=== PATIENT | female | born 1955 | race Caucasian/White ===

== ENCOUNTER → 2017-07-23 | Outpatient (CLI) | payer OTHER ==
--- NOTE | 2017-07-23 22:39 | MRI ---
EXAM DESCRIPTION: Brain w/oContrast CLINICAL HISTORY: SYNCOPE COMPARISON: None TECHNIQUE: Multiplanar images of the brain were obtained without the administration of intravenous contrast FINDINGS: There is no evidence of acute mass, mass effect, midline shift or hemorrhage. No focal abnormal extra-axial fluid collection is seen. The ventricles, basal cisterns and extra-axial fluid spaces are normal in size and configuration. Brain parenchymal signal is normal. IMPRESSION: No acute abnormalities. Electronically signed by: Daniel Verdugo 07/23/2017 10:38 PM [facility]
== END | disposition home or self-care (01) ==
LOC: MRI 14:07
PROVIDERS: ATTEND Emergency Medicine
DX: R55 Syncope and collapse (principal)

== ENCOUNTER 2018-05-19 15:14 | Emergency (ER) | payer OTHER ==
[2018-05-19] MEDS ORDERED: MORPHINE SULFATE INJ 10 MG/ML VIAL IV ONE (15:36)
[2018-05-19] MEDS ORDERED: ONDANSETRON INJ 4 MG/2 ML VIAL IV ONE (15:37)
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
[2018-05-19 16:42] VITALS: O2SAT 97
--- NOTE | 2018-05-19 16:57 | CT ---
EXAM DESCRIPTION: Head CLINICAL HISTORY: HEADACHE/INJURY COMPARISON: None Available TECHNIQUE: Contiguous axial CT images of the head were obtained. Coronal and sagittal reconstructions were created from the axial data. This exam was performed according to our departmental dose-optimization program, which includes automated exposure control, adjustment of the mA and/or kV according to patient size and/or use of iterative reconstruction technique. FINDINGS: There is no evidence of acute mass, mass effect, midline shift or hemorrhage. The ventricles and extra-axial CSF spaces are unremarkable. The brain parenchyma appears normal for the patient's age. No acute abnormalities of the bones is seen. IMPRESSION: No acute intracranial abnormality. Electronically signed by: Daniel Verdugo 05/19/2018 4:55 PM CDT
--- NOTE | 2018-05-19 16:59 | CT ---
EXAM DESCRIPTION: CT CERVICAL SPINE CLINICAL HISTORY: HEADACHE/INJURY COMPARISON: None Available. TECHNIQUE: Contiguous axial images of the cervical spine were obtained followed by reconstruction images.This exam was performed according to our departmental dose-optimization program, which includes automated exposure control, adjustment of the mA and/or kV according to patient size and/or use of iterative reconstruction technique. FINDINGS: There are degenerative changes of the bones. Soft tissue attenuation small focus in the trachea is most likely secretions. There is no acute fracture or subluxation. The prevertebral soft tissues are within normal limits. IMPRESSION: No acute fracture or subluxation. Electronically signed by: Daniel Verdugo 05/19/2018 4:58 PM CDT
--- NOTE | 2018-05-19 17:06 | CT ---
EXAM DESCRIPTION: Chest w/Contrast CT abdomen and pelvis with contrast CLINICAL HISTORY: HEADACHE/INJURY COMPARISON: None Available. TECHNIQUE: Contiguous axial images of the chest, abdomen and pelvis were obtained from the thoracic inlet up to the upper abdomen followed by reconstruction images. IV contrast was administered. This exam was performed according to our departmental dose-optimization program, which includes automated exposure control, adjustment of the mA and/or kV according to patient size and/or use of iterative reconstruction technique. FINDINGS: There are postsurgical changes in the upper abdomen. No significant free fluid. No clear evidence of bowel contusion. Small hiatal hernia is present. Gallbladder is surgically absent. No definite acute aortic abnormality. No pneumothorax. Atelectasis involves the left lung base. A stone measuring approximately 10 mm x 6 mm is in the right renal pelvis. No definite fracture. Metallic density in the left glenoid may be postsurgical and correlation with history will be helpful. The aorta is of normal contour and tapering. There is no pericardial or pleural fluid collection. There is no parenchymal consolidation or pneumothorax. IMPRESSION: No acute traumatic abnormality of the chest abdomen or pelvis. Electronically signed by: Daniel Verdugo 05/19/2018 5:05 PM CDT
--- NOTE | 2018-05-19 17:06 | RAD ---
EXAM DESCRIPTION: Chest,1 View CLINICAL HISTORY: CP COMPARISON: None. FINDINGS: Cardiac silhouette is within normal limits. There is no focal parenchymal or pleural disease. Visualized osseous structures are within normal limits. IMPRESSION: No evidence of acute cardiopulmonary disease. Electronically signed by: Daniel Verdugo 05/19/2018 5:05 PM CDT
--- NOTE | 2018-05-19 17:07 | RAD ---
EXAM DESCRIPTION: Knee,Left 2 or More Views CLINICAL HISTORY: KNEE PAIN COMPARISON: None FINDINGS: 2 view(s) submitted. No fracture or dislocation is identified. Bone marrow attenuation is unremarkable. No radiopaque foreign body is identified. IMPRESSION: No acute fracture or dislocation. Electronically signed by: Daniel Verdugo 05/19/2018 5:05 PM CDT
--- NOTE | 2018-05-19 17:07 | RAD ---
EXAM DESCRIPTION: Pelvis CLINICAL HISTORY: CP COMPARISON: None FINDINGS: One view(s) submitted. No fracture or dislocation is identified. Bone marrow attenuation is unremarkable. No radiopaque foreign body is identified. IMPRESSION: No acute fracture or dislocation. Electronically signed by: Daniel Verdugo 05/19/2018 5:06 PM CDT
[2018-05-19 19:05] VITALS: BP 136/83; TEMP 97.2
== END 2018-05-19 19:05 | disposition home or self-care (01) ==
LOC: ER 15:14
DX: S09.90XA Unspecified injury of head, initial encounter (principal); S39.81XA Other specified injuries of abdomen, initial encounter; S80.02XA Contusion of left knee, initial encounter; M54.2 Cervicalgia; R07.9 Chest pain, unspecified; M79.7 Fibromyalgia; F32.9 Major depressive disorder, single episode, unspecified; K21.9 Gastro-esophageal reflux disease without esophagitis; I10 Essential (primary) hypertension; J44.9 Chronic obstructive pulmonary disease, unspecified; Z86.73 Personal history of transient ischemic attack (TIA), and cerebral infarction without residual deficits; Z79.899 Other long term (current) drug therapy; Z88.0 Allergy status to penicillin; V49.59XA Passenger injured in collision with other motor vehicles in traffic accident, initial encounter; Y92.410 Unspecified street and highway as the place of occurrence of the external cause
CPT/HCPCS: 36415; 70450; 71045; 71260; 72125; 72170; 73560; 74177; 80053; 81001; 83690; 85025; J2060; J2270; J2405

== ENCOUNTER → 2019-07-14 | Outpatient (CLI) | payer OTHER ==
--- NOTE | 2019-07-14 11:18 | RAD ---
EXAM DESCRIPTION: Shoulder,Right 2 or More Views CLINICAL HISTORY: PAIN IN RIGHT SHOULDER COMPARISON: None. IMPRESSION: 4 views of the right shoulder show no acute fracture, focal bone destruction, or joint dislocation. 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 Right acromioclavicular joint shows mild joint space narrowing and bony hypertrophy superiorly and inferiorly mainly involving the acromion consistent with osteoarthritic changes. Electronically signed by: Harvey Burgos MD 07/14/2019 11:16 AM [facility]
== END ==
LOC: RAD 09:33
PROVIDERS: ATTEND Orthopaedic Surgery
DX: M19.011 Primary osteoarthritis, right shoulder (principal); M25.711 Osteophyte, right shoulder

== ENCOUNTER 2019-10-23 15:26 | Observation (INO) | payer OTHER ==
[2019-10-23] MEDS ORDERED: IPRATROPIUM/ALBUTEROL 3 ML VIAL NEB ONE ×2 (15:33→15:40)
[2019-10-23] MEDS ORDERED: ASPIRIN TABLET 325 MG TAB PO ONE (15:38)
[2019-10-23] MEDS ORDERED: SODIUM CHLORIDE 0.9% (FLUSH) 10 ML SYG IV PRN ×2 (15:38→22:22)
[2019-10-23] MEDS ORDERED: ONDANSETRON INJ 4 MG/2 ML VIAL IV ONE (15:47)
[2019-10-23] MEDS ORDERED: MORPHINE SULFATE INJ 10 MG/ML VIAL IV ONE (16:08)
--- NOTE | 2019-10-23 17:06 | RAD ---
EXAM DESCRIPTION: Chest,1 View CLINICAL HISTORY: 64 years Female sob COMPARISON: May 19, 2018. TECHNIQUE: AP view of the chest was obtained. FINDINGS: Cardiac silhouette is prominent in size. Central vessels are mildly increased. Infrahilar airspace opacities bilaterally. No effusions bilaterally. No pneumothorax. IMPRESSION: Mild central congestion Atelectatic change versus infiltrate infrahilar regions bilaterally. Electronically signed by: Patricia Nuñez MD 10/23/2019 5:05 PM [facility]
--- NOTE | 2019-10-23 17:09 | ED.PDOC ---
History of Present Illness - General Chief Complaint: Chest Pain/NC Stated Complaint: Shortness of breath, chest discomfort Time Seen by Provider: 10/23/19 15:38 - History of Present Illness Initial Comments: brought by the EMS with chest pain and sob , 3 NTG and morphine given , no improvement , , pt says that she is having pain all over the body Timing/Duration: 4-6 hours Severity: moderate Improving Factors: nothing Worsening Factors: nothing Allergies/Adverse Reactions: Allergies Penicillins Allergy (Intermediate, Verified 10/23/19 22:36) Hives Home Medications: Ambulatory Orders Ipratropium-Albuterol [Combivent] 1 aer IN .Q4 PRN 02/12/13 Gabapentin 400 mg PO BID 05/03/14 Topiramate [Topamax] 75 mg PO BEDTIME 01/29/18 Atorvastatin Calcium [Lipitor] 20 mg PO BEDTIME 10/23/19 Cyanocobalamin [B-12 Compliance Injection] 1,000 mcg INJ MONTHLY 10/23/19 Cyclobenzaprine HCl [Flexeril] 10 mg PO BID 10/23/19 Glipizide [Glipizide ER] 5 mg PO BID 10/23/19 HYDROcodone 10MG/APAP 325MG [[place] 10/325] 1 ea PO Q8HR PRN 10/23/19 Meclizine HCl [Meclizine] 25 mg PO BID 10/23/19 Metformin HCl [Fortamet] 1,000 mg PO BIDAC 10/23/19 Trazodone HCl 200 mg PO BEDTIME 10/23/19 levoFLOXacin [Levaquin] 500 mg PO DAILY #10 tab 10/23/19 Furosemide [Lasix] 20 mg PO DAILY PRN 30 Days #30 tab 10/24/19 Review of Systems - Review of Systems Constitutional: States: no symptoms reported EENTM: States: no symptoms reported Respiratory: States: see HPI Cardiology: States: see HPI Gastrointestinal/Abdominal: States: abdominal pain Genitourinary: States: no symptoms reported Musculoskeletal: States: no symptoms reported Skin: States: no symptoms reported Neurological: States: no symptoms reported Endocrine: States: no symptoms reported Hematologic/Lymphatic: States: no symptoms reported Past Medical History (General) - Patient Medical History Hx Seizures: No Hx Stroke: - Hx TIA Hx Dementia: No Hx Asthma: No Hx of COPD: Yes Hx Cardiac Disorders: Yes - Hx high cholesterol Hx Congestive Heart Failure: No Hx Pacemaker: No Hx Hypertension: Yes Hx Thyroid Disease: No Hx Diabetes: No Hx Gastroesophageal Reflux: Yes Hx Renal Disease: No Hx Cancer: No Hx of HIV: No Hx Hepatitis C: No Hx MRSA: Yes MRSA Source:: Wound - Vaccination History Hx Tetanus, Diphtheria Vaccination: Yes Hx Influenza Vaccination: No Hx Pneumococcal Vaccination: No - Social History Hx Tobacco Use: No Hx Chewing Tobacco Use: No Hx Alcohol Use: No Hx Substance Use: No Hx Substance Use Treatment: No Hx Depression: Yes - depression medication Hx Physical Abuse: No Hx Emotional Abuse: No Hx Suspected Abuse: No - Female History Patient : No Family Medical History - Family History Mother Living Status: Hx Family Congestive Heart Failure: Yes Hx Family Hypertension: Yes Hx Family Diabetes: Yes Hx Family;Other: RA Father Family History: Unknown Living Status: Hx Family;Other: liver cirrhosis Physical Exam - Physical Exam General Appearance: Alert Eyes, Ears, Nose, Throat Exam: PERRL/EOMI, normal ENT inspection Neck: non-tender, full range of motion, supple, normal inspection Respiratory: lungs clear, normal breath sounds, no respiratory distress, no accessory muscle use Cardiovascular/Chest: tachycardia Extremity: normal range of motion, non-tender, normal inspection Neurologic: no motor/sensory deficits, alert, normal mood/affect, oriented x 3 Skin Exam: normal color, warm/dry Lymphatic: no adenopathy Progress - Progress Progress: 10/23/19 17:07 Pt was desturating and became unresponsive for seconds , pt woke up pressure on the chest and was made to sit and her sat went back to normal , probably sleeping as she got morphine , pt might have sleep apnea and was desaturating. EKG showed that pt has afib gave Cardiazem and pt was reverted back to normal , as pt was intermittently desaturating called hospitalist and admit the pt , he agreed for the admission 10/25/19 22:18 - Results/Orders Results/Orders: Laboratory Results WBC 5.9 K/mm3 (4.8-10.8) 10/24/19 05:10 RBC 3.75 M/mm3 (4.20-5.40) L 10/24/19 05:10 Hgb 9.6 gm/dL (12.0-16.0) L 10/24/19 05:10 Hct 31.1 % (36.0-47.0) L 10/24/19 05:10 MCV 82.9 fl (81.0-99.0) 10/24/19 05:10 MCH 25.6 pg (27.0-31.0) L 10/24/19 05:10 MCHC 30.9 g/dL (33.0-37.0) L 10/24/19 05:10 RDW 16.4 % (11.5-14.5) H 10/24/19 05:10 Plt Count 142 K/mm3 (130-400) 10/24/19 05:10 MPV 9.6 fl (7.40-10.4) 10/24/19 05:10 Absolute Neuts (auto) 2.90 K/uL (1.8-6.8) 10/24/19 05:10 Absolute Lymphs (auto) 2.10 K/uL (1.0-3.4) 10/24/19 05:10 Absolute Monos (auto) 0.40 K/uL (0.2-0.8) 10/24/19 05:10 Absolute Eos (auto) 0.40 K/uL (0.0-0.4) 10/24/19 05:10 Absolute Basos (auto) 0.10 K/uL (0.0-0.1) 10/24/19 05:10 Neutrophils % 49.6 % (42.0-78.0) 10/24/19 05:10 Lymphocytes % 35.4 % (20.0-50.0) 10/24/19 05:10 Monocytes % 7.0 % (2.0-9.0) 10/24/19 05:10 Eosinophils % 7.0 % (1.0-5.0) H 10/24/19 05:10 Basophils % 1.0 % (0.0-2.0) 10/24/19 05:10 PT 10.3 SECONDS (9.0-10.9) 10/23/19 15:45 INR 1.04 (0.9-1.15) 10/23/19 15:45 PTT (SP) 23.1 SECONDS (21.8-31.6) 10/23/19 15:45 D-Dimer, Quantitative < 131 ng/ml (131-400) L 10/23/19 15:45 Sodium 139 mmol/L (135-145) 10/24/19 05:10 Potassium 4.0 mmol/L (3.6-5.0) 10/24/19 05:10 Chloride 105 mmol/L (101-111) 10/24/19 05:10 Carbon Dioxide 24 mmol/L (21-31) 10/24/19 05:10 Anion Gap 14.0 (12-18) 10/24/19 05:10 BUN 13 mg/dL (7-18) 10/24/19 05:10 Creatinine 0.82 mg/dL (0.6-1.3) 10/24/19 05:10 BUN/Creatinine Ratio 15.9 (10-20) 10/24/19 05:10 POC Glucose 121 mg/dL (70-105) H 10/24/19 07:00 Random Glucose 96 mg/dL (70-105) 10/24/19 05:10 Serum Osmolality 277.5 mOsm/L (275-295) 10/24/19 05:10 Calcium 8.8 mg/dL (8.4-10.2) 10/24/19 05:10 Magnesium 1.6 mg/dL (1.8-2.5) L 10/23/19 15:45 Total Bilirubin 0.4 mg/dL (0.2-1.0) 10/23/19 15:45 Direct Bilirubin < 0.1 mg/dL (0-0.2) 10/23/19 15:45 Indirect Bilirubin 0.3 mg/dL (0.2-0.8) 10/23/19 15:45 AST 18 IU/L (10-42) 10/23/19 15:45 ALT 16 IU/L (10-60) 10/23/19 15:45 Alkaline Phosphatase 64 IU/L (42-121) 10/23/19 15:45 Creatine Kinase 94 IU/L (26-140) 10/23/19 15:45 CK-MB (CK-2) 3.9 ng/mL (0.0-4.4) 10/23/19 15:45 CK-MB (CK-2) % Not Reportable 10/23/19 15:45 Troponin I < 0.02 ng/mL (0.01-0.05) 10/24/19 05:00 B-Natriuretic Peptide 11.1 pg/ml (0-100) 10/23/19 15:45 Serum Total Protein 7.0 gm/dL (6.4-8.2) 10/23/19 15:45 Albumin 3.8 g/dl (3.2-5.5) 10/23/19 15:45 Group A Strep Rapid Negative (NEGATIVE) 10/23/19 22:20 - EKG/XRAY/CT EKG: Tachy, Fibrillation Departure - Departure Clinical Impression: Chest pain, Abdominal pain, Atrial fibrillation, Pulmonary infiltrate on chest x-ray Time of Disposition: 19:12 Disposition: Admit Patient Condition: Good Diet: resume usual diet Activity: increase activity as tolerated, walking as tolerated Home Medications: Ambulatory Orders Ipratropium-Albuterol [Combivent] 1 aer IN .Q4 PRN 02/12/13 Gabapentin 400 mg PO BID 05/03/14 Topiramate [Topamax] 75 mg PO BEDTIME 01/29/18 Atorvastatin Calcium [Lipitor] 20 mg PO BEDTIME 10/23/19 Cyanocobalamin [B-12 Compliance Injection] 1,000 mcg INJ MONTHLY 10/23/19 Cyclobenzaprine HCl [Flexeril] 10 mg PO BID 10/23/19 Glipizide [Glipizide ER] 5 mg PO BID 10/23/19 HYDROcodone 10MG/APAP 325MG [[place] 10/325] 1 ea PO Q8HR PRN 10/23/19 Meclizine HCl [Meclizine] 25 mg PO BID 10/23/19 Metformin HCl [Fortamet] 1,000 mg PO BIDAC 10/23/19 Trazodone HCl 200 mg PO BEDTIME 10/23/19 levoFLOXacin [Levaquin] 500 mg PO DAILY #10 tab 10/23/19 Furosemide [Lasix] 20 mg PO DAILY PRN 30 Days #30 tab 10/24/19
--- NOTE | 2019-10-23 18:41 | CT ---
EXAM: Abdomen/Pelvis w/wo Contrast CLINICAL INDICATION: 64-year-old female with abdominal pain. COMPARISON: 01/29/2018. EXAMINATION: CT of the abdomen and pelvis was performed following intravenous administration of contrast. No oral contrast. Multiplanar reformatted images were provided. This exam was performed according to our departmental dose optimization program which includes use of automated exposure control, adjustment of the mA and/or kV according to patient size and/or use of iterative reconstruction technique. FINDINGS: Chest: Evaluation through the lung bases reveals no focal opacity, pleural effusion or pneumothorax. Heart size is within normal limits. No pericardial effusion. Postoperative change of the stomach with curvilinear suture material suggesting sequela of Kunal-en-Y gastric bypass. Abdomen and pelvis: The liver, pancreas, spleen, bilateral kidneys and bilateral adrenal glands are within normal limits. Surgical clips at the level of the gallbladder fossa status post cholecystectomy. Subcentimeter focus of calcification present within the lower pole of the RIGHT kidney compatible with nonobstructing calculus. The vessels are normal in caliber. No abdominopelvic lymph nodes are noted to be pathologically enlarged by CT measurement criteria. The bowel is within normal limits without abnormal bowel wall thickness or bowel dilation. No free air. No free abdominopelvic fluid collections. The appendix is not identified. The osseous structures are within normal limits. IMPRESSION: 1. No specific acute intra-abdominal findings are noted to suggest etiology of the patient's abdominal pain. 2. Nonobstructing calculus within the lower pole of the RIGHT kidney. Electronically signed by: Sirisha Gonzalez MD 10/23/2019 6:39 PM [employer] [facility]
[2019-10-23] MEDS ORDERED: levoFLOXacin 500 MG TAB PO ONE (20:54)
[2019-10-23] MEDS ORDERED: TRAZODONE HCL 200 MG PO SCH (21:00)
[2019-10-23] MEDS ORDERED: TOPIRAMATE 75 MG PO SCH (21:00)
[2019-10-23] MEDS ORDERED: MAGNESIUM SULFATE PREMIX 2GM 2 GM in PREMIX BAG 1 BAG IVPB ONE (22:20)
[2019-10-23] MEDS ORDERED: IBUPROFEN 400 MG TAB PO PRN (22:22)
[2019-10-23] MEDS ORDERED: LEVALBUTEROL NEBS 1.25 MG/3 ML VIAL INH PRN (22:22)
[2019-10-23] MEDS ORDERED: ONDANSETRON INJ 4 MG/2 ML VIAL IV PRN (22:22)
[2019-10-23] MEDS ORDERED: ACETAMINOPHEN 325 MG TAB PO PRN (22:22)
[2019-10-23] MEDS ORDERED: MORPHINE SULFATE INJ 10 MG/ML VIAL IV PRN (22:22)
[2019-10-23] MEDS ORDERED: KETOROLAC TROMETHAMINE INJ 30 MG/ML VIAL IV ONE (22:29)
[2019-10-23] MEDS ORDERED: cefTRIAXone SODIUM 1 GM in SODIUM CHL 0.9% 50ML MIN-BAG+ 50 ML IVPB SCH (22:30)
[2019-10-23] MEDS ORDERED: AZITHROMYCIN IV 500 MG in SODIUM CHLORIDE 0.9% 250ML 250 ML IVPB SCH (22:30)
[2019-10-23] MEDS ORDERED: IV SET AND CAP CHANGE INJ INJ SCH (22:30)
[2019-10-23] MEDS ORDERED: SODIUM CHLORIDE 0.9% 250ML 250 ML ONE (22:48)
[2019-10-23] MEDS ORDERED: SODIUM CHLORIDE 0.9% 50ML 50 ML ONE (22:49)
[2019-10-23] MEDS ORDERED: MAGNESIUM SULFATE PREMIX 2GM 50 ML IVPB ONE (22:49)
[2019-10-23] MEDS ORDERED: cefTRIAXone SODIUM 1 GM VIAL ONE (22:49)
[2019-10-23] MEDS ORDERED: AZITHROMYCIN IV 500 MG VIAL IVPB ONE (22:49)
[2019-10-23] MEDS: HYDROcodone 5MG/APAP 325MG 1 EA TAB PO PRN (23:18)
[2019-10-23] MEDS ORDERED: DEXTROSE 10% 500ML IVPB PRN (23:31)
[2019-10-23] MEDS ORDERED: GLUCAGON INJ 1 MG VIAL SUBCU PRN (23:31)
[2019-10-23] MEDS ORDERED: traZODone HCL 100 MG TAB PO ONE (23:46)
[2019-10-23] MEDS ORDERED: MECLIZINE HCL 12.5 MG TAB ONE (23:46)
[2019-10-23] MEDS ORDERED: TOPIRAMATE 25 MG TAB ONE (23:46)
[2019-10-23] MEDS: CYCLOBENZAPRINE HCL 10 MG TAB PO SCH (23:49)
[2019-10-23] MEDS: MECLIZINE HCL 25 MG PO SCH (23:49)
[2019-10-23] MEDS: GABAPENTIN 100 MG CAP PO SCH (23:50)
[2019-10-24] MEDS ORDERED: LEVALBUTEROL NEBS 1.25 MG/3 ML VIAL INH SCH
[2019-10-24] MEDS ORDERED: metFORMIN HCL 500 MG TAB ONE (05:03)
[2019-10-24] MEDS: HYDROcodone 5MG/APAP 325MG 1 EA TAB PO PRN (05:26)
[2019-10-24 06:08] VITALS: TEMP 97.6
[2019-10-24] MEDS ORDERED: PANTOPRAZOLE SODIUM IV 40 MG VIAL IV SCH (06:30)
[2019-10-24] MEDS ORDERED: INSULIN LISPRO 100 UNITS/ML PEN SUBCU SCH (07:00)
[2019-10-24] MEDS ORDERED: METFORMIN HCL 1000 MG PO SCH (07:00)
[2019-10-24] MEDS ORDERED: MECLIZINE HCL 12.5 MG TAB ONE (07:07)
--- NOTE | 2019-10-24 07:19 | RAD ---
EXAM: Chest 2 Views HISTORY: Pneumonia COMPARISON: Chest one view 10/23/2019 CT chest 05/19/2018 TECHNIQUE: Chest one view PA FINDINGS: Trachea midline. Heart size and pulmonary vessels within normal limits. Mild symmetric bilateral lower lungs/chest density on PA view most likely represents overlying breast/chest wall attenuation artifact. No focal consolidation, lung mass, pulmonary edema, pleural effusion, or pneumothorax. No fracture. Right upper abdominal surgical clips. IMPRESSION: Unremarkable chest radiograph. Electronically signed by: Yossi Ponce MD 10/24/2019 7:18 AM [facility]
[2019-10-24] MEDS: CYCLOBENZAPRINE HCL 10 MG TAB PO SCH (08:10)
[2019-10-24] MEDS: GABAPENTIN 100 MG CAP PO SCH (08:10)
[2019-10-24] MEDS: MECLIZINE HCL 25 MG PO SCH (08:11)
--- NOTE | 2019-10-24 10:21 | SSS ---
SUPERVISING PHYSICIAN: Baljinder Zacarias MD CHIEF COMPLAINT: Chest pain. HISTORY OF PRESENT ILLNESS: This is a 64-year-old female who came into the Emergency Room with some chest pain and shortness of breath. Apparently she had chest pain and shortness of breath and was given 3 nitroglycerin and morphine prior to arrival with no significant improvement. She also complained of pain all over her body. She was seen in the Emergency Room and had negative EKG and negative cardiac markers. Apparently around 5 o'clock yesterday afternoon while in the Emergency Room, she desaturated and became unresponsive for a few seconds, but then was aroused and stated she had some chest pressure at that time. The thought was that maybe the morphine caused her to go to sleep deeper than normal and she also probably has sleep apnea. Nonetheless, she was admitted for observation. Additionally, the chest x-ray showed some bibasilar atelectasis. She states she has actually been treated as an outpatient for pneumonia. Her white count is normal. At first, she was placed on empiric antibiotics. This morning, chest x-ray does not indicate that she has any bibasilar atelectasis. White count is still normal. Her cardiac workup was negative with three consecutive negative troponins as well as EKGs which were unremarkable for acute findings. She did have an EKG in the ER that showed afib, which responded to diltiazem IV push. However, the latest EKG showed a normal sinus rhythm with no ST segment changes. She states she is still a little bit short of breath. Her lungs are clear to auscultation. I took her off the oxygen and O2 saturations were 100% at rest as well as with ambulation. The patient states she does have a history of posttraumatic stress disorder and is on psych medications also. She states she had some lower extremity swelling, but was given a dose of Lasix and this morning has resolved. I do not see that any Lasix was given in the Emergency Room. At the time of examination, the patient is alert and oriented. She appears dyspneic, however, on exam. She is not having any findings consistent with volume overload or a pneumonia process. She denies smoking. There is no wheezing. PAST MEDICAL HISTORY: 1. Chronic pain. 2. Diabetes mellitus, type 2. 3. Chronic depression. 4. Posttraumatic stress disorder. 5. Hypertension. PAST SURGICAL HISTORY: 1. Rotator cuff surgery. 2. Appendectomy. 3. Hysterectomy. 4. Tubal ligation. 5. Carpal tunnel release. 6. Breast reduction. 7. Bladder suspension. 8. Hernia repair. 9. Gastric bypass. MEDICATIONS: 1. Lipitor 20 mg p.o. at bedtime. 2. B12 1000 mcg injectable. 3. Cyclobenzaprine 10 mg p.o. b.i.d. 4. Gabapentin 400 mg p.o. b.i.d. 5. Glipizide 5 mg p.o. b.i.d. 6. Hydrocodone 10 mg every 8 hours p.r.n. for pain. 7. Combivent 1 puff q.i.d. 8. Meclizine 25 mg p.o. b.i.d. 9. Metformin 1000 mg p.o. b.i.d. 10. Topamax 75 mg p.o. at bedtime. 11. Trazodone 200 mg p.o. at bedtime. ALLERGIES: PENICILLIN. FAMILY HISTORY: Positive for hypertension, heart disease, stroke, diabetes, cancer. SOCIAL HISTORY: Nonsmoker, but her does smoke. No alcohol, no illicit drugs. REVIEW OF SYSTEMS: CONSTITUTIONAL: No fever or chills. No recent weight loss or weight gain. HEENT: No headaches, vision changes, ear pain, nasal congestion or throat pain. RESPIRATORY: No cough, hemoptysis or pleuritic chest pain. She has had some shortness of breath. CARDIOVASCULAR: Positive for chest pain. No palpitations. Positive for peripheral edema. GASTROINTESTINAL: No nausea, vomiting, diarrhea, constipation or abdominal pain. GENITOURINARY: No dysuria, frequency or flank pain. MUSCULOSKELETAL: She has body wide pain. HEMATOLOGIC: No easy bruising and no transfusion reaction. NEUROLOGIC: No syncope, paresthesias or seizures. PHYSICAL EXAMINATION: VITAL SIGNS: Blood pressure 99/67. Heart rate 80. Respiratory rate 18. Temperature 97.6. Oxygen saturation 98%. GENERAL: Ms. Clement is a 64-year-old female in no active distress. NEUROLOGIC: The patient is alert and oriented. LUNGS: Clear to auscultation bilaterally. CARDIOVASCULAR: Regular rate and rhythm. Normal S1, S2. ABDOMEN: Soft. Positive bowel sounds. GENITOURINARY: Deferred. EXTREMITIES: Lower extremities with no edema. LABORATORY: Labs and films are reviewed in the EMR. ASSESSMENT: 1. Chest pain with acute coronary syndrome ruled out. 2. Shortness of breath. 3. No pneumonia seen on x-ray today. 4. History of depression with posttraumatic stress disorder. 5. Diabetes mellitus, type 2. PLAN: At this time, the patient has been ruled out acute coronary syndrome. Once again, troponins were negative, and there are no acute changes on the 12- lead EKG. It is normal sinus rhythm with no ST segment abnormalities. The patient will be discharged home in stable condition. I have written for p.r.n. Lasix to be given for lower extremity swelling. Levaquin was ordered by the ER physician. This was for apparent concern for a pneumonia, however, the pneumonia is not apparent on the chest x-ray today and the white count is normal. Recommend cardiology evaluation as an outpatient for possible stress testing. #[id number] MTDD
[2019-10-24 10:38] VITALS: BP 138/76; O2SAT 98
[2019-10-24] MEDS ORDERED: metFORMIN XR 500 MG TAB.ER.24 PO SCH (17:00)
[2019-10-24] MEDS ORDERED: MECLIZINE HCL 12.5 MG TAB PO SCH (21:00)
[2019-10-24] MEDS ORDERED: TOPIRAMATE 25 MG TAB PO SCH (21:00)
[2019-10-24] MEDS ORDERED: ATORVASTATIN 20 MG TAB PO SCH (21:00)
[2019-10-24] MEDS ORDERED: GABAPENTIN 400 MG CAP PO SCH (21:00)
[2019-10-24] MEDS ORDERED: traZODone HCL 100 MG TAB PO SCH (21:00)
== END 2019-10-24 11:12 | disposition home or self-care (01) ==
LOC: ER 15:26 → MS 21:47
PROVIDERS: ADMIT Nurse Practitioner Family; ATTEND Nurse Practitioner
DX: R07.89 Other chest pain (principal); R06.02 Shortness of breath; F32.9 Major depressive disorder, single episode, unspecified; F43.10 Post-traumatic stress disorder, unspecified; E11.9 Type 2 diabetes mellitus without complications; G89.29 Other chronic pain; I10 Essential (primary) hypertension; J44.9 Chronic obstructive pulmonary disease, unspecified; E78.00 Pure hypercholesterolemia, unspecified; K21.9 Gastro-esophageal reflux disease without esophagitis; Z79.84 Long term (current) use of oral hypoglycemic drugs; I48.91 Unspecified atrial fibrillation; N20.0 Calculus of kidney; Z79.51 Long term (current) use of inhaled steroids; Z79.899 Other long term (current) drug therapy; Z79.891 Long term (current) use of opiate analgesic; Z88.0 Allergy status to penicillin; Z77.22 Contact with and (suspected) exposure to environmental tobacco smoke (acute) (chronic); Z86.73 Personal history of transient ischemic attack (TIA), and cerebral infarction without residual deficits; Z86.14 Personal history of Methicillin resistant Staphylococcus aureus infection; Z82.49 Family history of ischemic heart disease and other diseases of the circulatory system; Z82.3 Family history of stroke; Z83.3 Family history of diabetes mellitus; Z80.9 Family history of malignant neoplasm, unspecified; Z82.61 Family history of arthritis; Z84.89 Family history of other specified conditions
CPT/HCPCS: 96366; 96367 ×2; 96365; 96375 ×2; J0696; J1885; J2405; A4216; J7050; J0456; J7620; J3475; J7614; 85379; 80048 ×2; 82948; 87880; 36415 ×3; 82550; 82553; 85025 ×2; 85730; 85610; 84484 ×3; 80076; 87070; 83880; 36416; 71045; 71046; 74178; 94640 ×3; 94760 ×3; 99285; 93005 ×3; G0378; 87502